=== PATIENT | male | born 1975 | race American Indian/Alaskan Native ===

== ENCOUNTER 2018-02-22 04:21 | Emergency (ER) | payer BC ==
[~2018-02-22] VITALS: Ht 185.4 cm; Wt 88.5 kg
[~2018-02-22 04:21] MED LIST: ALBU90OI INH; CIPR500 PO; CODACE30 PO; DIAZ5 PO; DOXA1 PO; DOXY100 PO; IBUP600 PO; IBUP800 PO; METPRE4DP PO; NAPR500 PO; OXYACE5T PO; Percocet 5-3251 EACH PO; TAMS.4ER PO
== END 2018-02-22 05:59 | disposition home or self-care (01) ==
LOC: ER 04:21
DX: S60.111A Contusion of right thumb with damage to nail, initial encounter (principal); I10 Essential (primary) hypertension; F17.210 Nicotine dependence, cigarettes, uncomplicated; Z88.0 Allergy status to penicillin; W23.0XXA Caught, crushed, jammed, or pinched between moving objects, initial encounter
CPT/HCPCS: 29125; 73140; 99283